=== PATIENT | female | born 1980 | race Two or more races ===

== ENCOUNTER → 2018-09-18 | Outpatient (CLI) | payer OTHER ==
[2018-09-18 10:23] LABS: BASOPHILS # (AUTO) 0.05 x10^3/uL (0-0.1); BASOPHILS % (AUTO) 1 % (0-1); EOSINOPHILS # (AUTO) 0.14 x10^3/uL (0-0.4); EOSINOPHILS % (AUTO) 2 % (1-7); LYMPHOCYTES # (AUTO) 2.27 x10^3/uL (1-3.4); LYMPHOCYTES % (AUTO) 27 % (22-44); MD NO; MEAN CORPUSCULAR HEMOGLOBIN 29.4 pg (27.0-34.8); MEAN CORPUSCULAR VOLUME 86.5 fL (80-100); MEAN PLATELET VOLUME 8.5 fL (7.4-10.4); MONOCYTES # (AUTO) 0.53 x10^3/uL (0.2-0.8); MONOCYTES % (AUTO) 6 % (2-9); NEUTROPHILS # (AUTO) 5.34 x10^3/uL (1.8-6.8); NEUTROPHILS % (AUTO) 64 % (42-75); PLATELET COUNT 283 x10^3/uL (130-400); RED BLOOD COUNT 5.48 x10^6/uL (3.82-5.3); RED CELL DISTRIBUTION WIDTH 12.7 % (9.6-15.2)
[2018-09-18 10:35] LABS: ALANINE AMINOTRANSFERASE 29 U/L (12-78); ALBUMIN 3.8 g/dL (3.4-5.0); ANION GAP 5 mmol/L (5-15); CALCIUM 8.6 mg/dL (8.5-10.1); CHLORIDE 107 mmol/L (98-107); CREATININE 0.94 mg/dL (0.55-1.02)
[2018-09-18 10:44] LABS: ALKALINE PHOSPHATASE 77 U/L (45-117); BILIRUBIN,TOTAL 0.4 mg/dL (0.2-1.0); CHOL/HDL RATIO 5.2; CHOLESTEROL, TOTAL 194 mg/dL (140-239); FREE T4 (FREE THYROXINE) 1.13 ng/dL (0.76-1.46); HDL CHOL % 19 % (28-40); HDL CHOLESTEROL (DIRECT) 37 mg/dL (40-60); LDL CHOLESTEROL,CALCULATED 115 mg/dL (54-169); LDL/HDL RATIO 3.1 (0.5-3.0); TOTAL PROTEIN 8.2 g/dL (6.4-8.2); TRIGLYCERIDES 209 mg/dL (50-200); VLDL CHOLESTEROL 42 mg/dL (0-25)
== END | disposition home or self-care (01) ==
LOC: LAB 10:10
PROVIDERS: ATTEND Nurse Practitioner Family
DX: Z00.8 Encounter for other general examination (principal)
CPT/HCPCS: 36415; 80053; 80061; 82306; 84439; 84443; 84480; 85025

== ENCOUNTER → 2018-09-18 | Outpatient (CLI) | payer OTHER | END | disposition home or self-care (01) | LOC: CARD 08:43 | PROVIDERS: ATTEND Nurse Practitioner Family | DX: G56.03 Carpal tunnel syndrome, bilateral upper limbs (principal) | CPT/HCPCS: 95886; 95908 ==

== ENCOUNTER 2018-11-10 09:17 | Emergency (ER) | payer OTHER ==
[~2018-11-10] VITALS: Ht 165.1 cm; Wt 113.0 kg
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
[2018-11-10 10:57] LABS: BASOPHILS # (AUTO) 0.06 x10^3/uL (0-0.1); BASOPHILS % (AUTO) 1 % (0-1); EOSINOPHILS # (AUTO) 0.04 x10^3/uL (0-0.4); EOSINOPHILS % (AUTO) 1 % (1-7); LYMPHOCYTES # (AUTO) 1.63 x10^3/uL (1-3.4); LYMPHOCYTES % (AUTO) 21 % (22-44); MD NO; MEAN CORPUSCULAR HGB CONC 33.6 g/dL (32.4-35.8); MEAN PLATELET VOLUME 8.5 fL (7.4-10.4); MONOCYTES # (AUTO) 0.61 x10^3/uL (0.2-0.8); MONOCYTES % (AUTO) 8 % (2-9); NEUTROPHILS # (AUTO) 5.64 x10^3/uL (1.8-6.8); NEUTROPHILS % (AUTO) 71 % (42-75); PLATELET COUNT 277 x10^3/uL (130-400); RED BLOOD COUNT 4.86 x10^6/uL (3.82-5.3); RED CELL DISTRIBUTION WIDTH 12.8 % (9.6-15.2)
[2018-11-10 11:10] LABS: ALBUMIN 3.7 g/dL (3.4-5.0); ANION GAP 5 mmol/L (5-15); CHLORIDE 110 mmol/L (98-107)
[2018-11-10 11:30] LABS: CREATININE 0.69 mg/dL (0.55-1.02)
--- NOTE | 2018-11-10 12:21 | NUR ---
AWAITING UA RESULTS
[2018-11-10 12:53] LABS: MICROSCOPIC AUTO
[2018-11-10 12:56] LABS: CULTURE INDICATED? NO
[2018-11-10 14:01] VITALS: BP 131/70
== END 2018-11-10 14:15 | disposition home or self-care (01) ==
LOC: ED 10:00
DX: O20.0 Threatened abortion (principal); Z3A.01 Less than 8 weeks gestation of pregnancy
CPT/HCPCS: 36415; 76801; 80048; 81001; 82040; 84702; 85025; 86901; 99284

== ENCOUNTER 2018-11-12 16:41 | Outpatient (CLI) | payer OTHER | END 2018-11-12 23:59 | disposition home or self-care (01) | LOC: LAB 16:41 | PROVIDERS: ATTEND Nurse Practitioner Family | DX: Z33.1 Pregnant state, incidental (principal) | CPT/HCPCS: 36415; 84702 ==

== ENCOUNTER 2019-02-25 06:49 | Day surgery (SDC) | payer OTHER ==
[2019-02-22 08:50] LABS: ALBUMIN 3.6 g/dL (3.4-5.0); ANION GAP 5 mmol/L (5-15); CALCIUM 8.7 mg/dL (8.5-10.1); CHLORIDE 114 mmol/L (98-107)
[2019-02-22 08:55] LABS: ALANINE AMINOTRANSFERASE 30 U/L (12-78); ALKALINE PHOSPHATASE 74 U/L (45-117); BILIRUBIN,TOTAL 0.5 mg/dL (0.2-1.0); CREATININE 0.85 mg/dL (0.55-1.02); TOTAL PROTEIN 7.3 g/dL (6.4-8.2)
[~2019-02-25] VITALS: Ht 162.6 cm; Wt 116.4 kg
[~2019-02-25 06:49] MED LIST: HYDROCHLOROTH12.5 MG PO
[2019-02-25] MEDS ORDERED: BUPIVACAINE/PF 0.5% ONE (06:56)
[2019-02-25] MEDS ORDERED: EPINEPHRINE 1 MG/ML, 1ML ONE (06:56)
[2019-02-25] MEDS ORDERED: LIDOCAINE 1%, 20ML ONE (06:56)
[2019-02-25] MEDS ORDERED: LACTATED RINGERS 1,000 ML IV SCH (07:17)
[2019-02-25 07:18] VITALS: BP 126/81
[2019-02-25] MEDS ORDERED: FENTANYL PF 100 MCG/2ML ONE (08:26)
[2019-02-25] MEDS ORDERED: MIDAZOLAM 1 MG/ML, 2ML ONE ×2 (08:26→09:01)
[2019-02-25] MEDS ORDERED: FENTANYL PF 100 MCG/2ML IV PRN (09:00)
[2019-02-25] MEDS ORDERED: hydrALAzine 20 MG/ML, 1ML IV PRN (09:00)
[2019-02-25] MEDS ORDERED: ONDANSETRON 2MG/ML, 2ML IV PRN (09:00)
[2019-02-25] MEDS ORDERED: OXYcodone 5 MG/5 ML ORAL.SOL UDC PO PRN (09:00)
[2019-02-25] MEDS ORDERED: ACETAMINOPHEN 325 MG TABLET PO PRN (09:00)
[2019-02-25] MEDS ORDERED: KETOROLAC 30 MG/1 ML IV PRN (09:00)
[2019-02-25] MEDS ORDERED: PROMETHAZINE 25 MG/ML, 1ML IV PRN (09:00)
[2019-02-25] MEDS ORDERED: MEPERIDINE/PF 25MG/0.5ML IVPush PRN (09:00)
[2019-02-25] MEDS ORDERED: MIDAZOLAM 1 MG/ML, 2ML IV PRN (09:00)
[2019-02-25] MEDS ORDERED: KETOROLAC 30 MG/1 ML ONE (09:23)
[2019-02-25] MEDS ORDERED: PROPOFOL 10 MG/ML, 20ML ONE (09:23)
[2019-02-25] MEDS ORDERED: OXYcodone 5 MG/5 ML ORAL.SOL UDC ONE (09:51)
== END 2019-02-25 11:16 | disposition home or self-care (01) ==
LOC: OUT 06:49
PROVIDERS: ATTEND Orthopaedic Surgery Hand Surgery
DX: G56.01 Carpal tunnel syndrome, right upper limb (principal); Z72.89 Other problems related to lifestyle
CPT/HCPCS: 29848; 36415; 80053; 81025; J0171; J1885; J2250; J2704; J3010; J3490; J7120

== ENCOUNTER 2019-06-09 12:48 | Outpatient (CLI) | payer OTHER | END 2019-06-09 23:59 | disposition home or self-care (01) | LOC: CVU 12:48 | PROVIDERS: ATTEND Internal Medicine Cardiovascular Disease | DX: I82.409 Acute embolism and thrombosis of unspecified deep veins of unspecified lower extremity (principal); R60.9 Edema, unspecified; I87.2 Venous insufficiency (chronic) (peripheral); I73.9 Peripheral vascular disease, unspecified | CPT/HCPCS: 93306; 93970 ==

== ENCOUNTER 2019-10-06 17:50 | Emergency (ER) | payer OTHER ==
[~2019-10-06] VITALS: Ht 165.1 cm; Wt 108.8 kg
--- NOTE | 2019-10-06 19:06 | NUR ---
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
--- NOTE | 2019-10-06 19:43 | NUR ---
PT WITH VAGINAL BLEEDING THAT STARTED TODAY. BRIGHT RED BLOOD VAGINALLY. C/O LOWER BACK PAIN
[2019-10-06 19:44] LABS: BASOPHILS % (AUTO) 1 % (0-1); EOSINOPHILS # (AUTO) 0.11 x10^3/uL (0-0.4); EOSINOPHILS % (AUTO) 1 % (1-7); LYMPHOCYTES # (AUTO) 1.99 x10^3/uL (1-3.4); LYMPHOCYTES % (AUTO) 20 % (22-44); MD NO; MEAN CORPUSCULAR HEMOGLOBIN 30.1 pg (27.0-34.8); MEAN CORPUSCULAR HGB CONC 32.9 g/dL (32.4-35.8); MEAN CORPUSCULAR VOLUME 91.7 fL (80-100); MEAN PLATELET VOLUME 8.9 fL (7.4-10.4); MONOCYTES # (AUTO) 0.59 x10^3/uL (0.2-0.8); MONOCYTES % (AUTO) 6 % (2-9); NEUTROPHILS # (AUTO) 7.26 x10^3/uL (1.8-6.8); NEUTROPHILS % (AUTO) 72 % (42-75); PLATELET COUNT 262 x10^3/uL (130-400); RED BLOOD COUNT 4.91 x10^6/uL (3.82-5.3); RED CELL DISTRIBUTION WIDTH 13.3 % (9.6-15.2)
[2019-10-06 19:52] LABS: ALANINE AMINOTRANSFERASE 57 U/L (12-78); ALBUMIN 3.9 g/dL (3.4-5.0); ANION GAP 8 mmol/L (5-15); CALCIUM 9.4 mg/dL (8.5-10.1); CHLORIDE 109 mmol/L (98-107); CREATININE 0.78 mg/dL (0.55-1.02)
[2019-10-06 20:03] LABS: CULTURE INDICATED? YES; MICROSCOPIC INDICATED
[2019-10-06 20:09] LABS: ALKALINE PHOSPHATASE 58 U/L (45-117); BILIRUBIN,TOTAL 0.4 mg/dL (0.2-1.0); TOTAL PROTEIN 8.2 g/dL (6.4-8.2)
[2019-10-06] MEDS ORDERED: ONDANSETRON 2MG/ML, 2ML ONE (20:36)
[2019-10-06 20:46] VITALS: BP 112/49
[2019-10-06] MEDS ORDERED: SODIUM CHLORIDE FLUSH 10ML SYR IVF ONE (21:00)
[2019-10-06] MEDS ORDERED: ONDANSETRON 2MG/ML, 2ML IVPush ONE (21:00)
[2019-10-06] MEDS ORDERED: SODIUM CHLORIDE 0.9% 1,000ML IVBOLUS ONE (21:00)
== END 2019-10-06 22:15 | disposition home or self-care (01) ==
LOC: ED 22:09
DX: O20.0 Threatened abortion (principal); O21.0 Mild hyperemesis gravidarum; N30.90 Cystitis, unspecified without hematuria; E86.0 Dehydration; Z3A.21 21 weeks gestation of pregnancy
CPT/HCPCS: 36415; 76801; 80053; 81001; 84702; 85025; 86901; 87086; 96361; 96374; 99284; J2405; J7030

== ENCOUNTER 2020-05-18 05:34 | Inpatient (IN) | payer OTHER ==
[~2020-05-18] VITALS: Ht 165.1 cm; Wt 120.0 kg
[2020-05-18] MEDS ORDERED: LACTATED RINGERS 1,000 ML IV SCH (05:56)
[2020-05-18] MEDS ORDERED: SODIUM CITRATE/CITRIC ACID 30 ML UDC PO ONE (06:00)
[2020-05-18] MEDS ORDERED: METOCLOPRAMIDE 5 MG/ML, 2ML IV ONE (06:00)
[2020-05-18] MEDS ORDERED: LACTATED RINGERS 1,000 ML IVBOLUS ONE (06:00)
[2020-05-18] MEDS ORDERED: OXYTOCIN 30U/ 0.9% NaCL 500ML 500 ML ONE (06:24)
[2020-05-18] MEDS ORDERED: NEWBORN KIT ONE (06:24)
[2020-05-18] MEDS ORDERED: SODIUM CITRATE/CITRIC ACID 30 ML UDC ONE (06:24)
[2020-05-18] MEDS ORDERED: METOCLOPRAMIDE 5 MG/ML, 2ML ONE (06:24)
[2020-05-18 06:59] LABS: BASOPHILS # (AUTO) 0.04 x10^3/uL (0-0.1); BASOPHILS % (AUTO) 0 % (0-1); EOSINOPHILS # (AUTO) 0.13 x10^3/uL (0-0.4); EOSINOPHILS % (AUTO) 1 % (1-7); LYMPHOCYTES # (AUTO) 1.59 x10^3/uL (1-3.4); LYMPHOCYTES % (AUTO) 16 % (22-44); MD NO; MEAN CORPUSCULAR HEMOGLOBIN 29.5 pg (27.0-34.8); MEAN CORPUSCULAR HGB CONC 33.6 g/dL (32.4-35.8); MEAN CORPUSCULAR VOLUME 87.9 fL (80-100); MONOCYTES # (AUTO) 0.75 x10^3/uL (0.2-0.8); MONOCYTES % (AUTO) 7 % (2-9); NEUTROPHILS # (AUTO) 7.58 x10^3/uL (1.8-6.8); NEUTROPHILS % (AUTO) 75 % (42-75); PLATELET COUNT 164 x10^3/uL (130-400); RED BLOOD COUNT 4.37 x10^6/uL (3.82-5.3); RED CELL DISTRIBUTION WIDTH 13.1 % (9.6-15.2)
[2020-05-18] MEDS ORDERED: FENTANYL PF 100 MCG/2ML ONE (07:13)
[2020-05-18] MEDS ORDERED: LIDOCAINE 1%, 20ML ONE (07:34)
[2020-05-18] MEDS ORDERED: CEFAZOLIN 1,000 MG ONE ×3 (08:09)
[2020-05-18] MEDS ORDERED: KETOROLAC 30 MG/1 ML ONE (08:09)
[2020-05-18] MEDS ORDERED: OXYTOCIN 10 UNITS/ML, 1ML ONE ×4 (08:09)
[2020-05-18] MEDS ORDERED: EPHEDRINE 50 MG/ML, 1ML ONE (08:09)
[2020-05-18] MEDS: LACTATED RINGERS 1,000 ML IV SCH ×5 (08:53→23:48)
[2020-05-18] MEDS ORDERED: MISOPROSTOL 200 MCG TABLET ONE (08:59)
[2020-05-18] MEDS ORDERED: morphine SULFATE 10 MG/ML, 1ML IVPush PRN ×2 (09:00→09:30)
[2020-05-18] MEDS ORDERED: IBUPROFEN 600 MG TABLET PO PRN (09:00)
[2020-05-18] MEDS ORDERED: METHYLERGONOVINE 0.2 MG/ML IM PRN (09:00)
[2020-05-18] MEDS: KETOROLAC 30 MG/1 ML IV SCH ×3 (09:00→21:24)
[2020-05-18] MEDS ORDERED: DIPH,PERTUSS(ACELL),TET VAC/PF NC IM-VACC PRN (09:00)
[2020-05-18] MEDS ORDERED: CARBOPROST TROMETHAMINE 250 MCG/ML, 1ML IM PRN (09:00)
[2020-05-18] MEDS ORDERED: MISOPROSTOL 200 MCG TABLET PR PRN (09:00)
[2020-05-18] MEDS: PRENATAL VIT/IRON/FA 1 EACH TABLET PO SCH (09:00)
[2020-05-18] MEDS ORDERED: ONDANSETRON 2MG/ML, 2ML IV PRN (09:00)
[2020-05-18] MEDS ORDERED: MEPERIDINE/PF 100 MG/ML ONE (09:13)
[2020-05-18] MEDS: MEPERIDINE/PF 25MG/0.5ML IVPush PRN ×4 (09:16→11:50)
[2020-05-18] MEDS ORDERED: OXYcodone 5 MG/5 ML ORAL.SOL UDC PO PRN (09:30)
[2020-05-18] MEDS ORDERED: MISOPROSTOL 200 MCG TABLET PR ONE (09:30)
[2020-05-18] MEDS ORDERED: DIPHENHYDRAMINE 50 MG/ML, 1ML IVPush PRN (09:30)
[2020-05-18] MEDS ORDERED: EPHEDRINE 50 MG/ML, 1ML IM PRN (09:30)
[2020-05-18] MEDS ORDERED: LABETALOL 5MG/ML, 20ML IV PRN (09:30)
[2020-05-18] MEDS ORDERED: ONDANSETRON 2MG/ML, 2ML IVPush PRN (09:30)
[2020-05-18] MEDS ORDERED: EPHEDRINE 50 MG/ML, 1ML IVPush PRN (09:30)
[2020-05-18] MEDS ORDERED: FENTANYL PF 100 MCG/2ML IV PRN (09:30)
[2020-05-18] MEDS ORDERED: METHYLERGONOVINE 0.2 MG/ML IM ONE (10:21)
[2020-05-18] MEDS ORDERED: METHYLERGONOVINE 0.2 MG/ML IM STA (10:23)
[2020-05-18] MEDS: OXYTOCIN 30U/ 0.9% NaCL 500ML 500 ML IV SCH ×2 (10:31→18:53)
[2020-05-18] MEDS ORDERED: CARBOPROST TROMETHAMINE 250 MCG/ML, 1ML IM ONE ×2 (10:39→11:00)
[2020-05-18] MEDS ORDERED: TRANEXAMIC ACID 100 MG/ML, 10ML ONE (10:46)
[2020-05-18 11:23] LABS: MEAN CORPUSCULAR HGB CONC 32.7 g/dL (32.4-35.8); MEAN CORPUSCULAR VOLUME 88.8 fL (80-100); MEAN PLATELET VOLUME 9.8 fL (7.4-10.4); PLATELET COUNT 193 x10^3/uL (130-400); RED BLOOD COUNT 4.49 x10^6/uL (3.82-5.3); RED CELL DISTRIBUTION WIDTH 13.2 % (9.6-15.2)
[2020-05-18 11:43] LABS: BASOPHILS # (AUTO) 0.02 x10^3/uL (0-0.1); BASOPHILS % (AUTO) 0 % (0-1); EOSINOPHILS # (AUTO) 0.01 x10^3/uL (0-0.4); EOSINOPHILS % (AUTO) 0 % (1-7); LYMPHOCYTES # (AUTO) 1.32 x10^3/uL (1-3.4); LYMPHOCYTES % (AUTO) 7 % (22-44); MD SCAN; MONOCYTES # (AUTO) 0.76 x10^3/uL (0.2-0.8); MONOCYTES % (AUTO) 4 % (2-9); NEUTROPHILS # (AUTO) 17.95 x10^3/uL (1.8-6.8); NEUTROPHILS % (AUTO) 90 % (42-75)
[2020-05-18 12:15] VITALS: BP 136/81
[2020-05-18] MEDS: ACETAMINOPHEN 325 MG TABLET PO PRN ×3 (12:47→21:25)
[2020-05-18] MEDS: SIMETHICONE 80 MG CHEW TAB PO PRN (12:47)
[2020-05-18] MEDS: OXYcodone IR 5MG TABLET PO PRN ×3 (12:48→21:25)
[2020-05-18 16:08] LABS: BASOPHILS % (AUTO) 0 % (0-1); EOSINOPHILS # (AUTO) 0.02 x10^3/uL (0-0.4); EOSINOPHILS % (AUTO) 0 % (1-7); LYMPHOCYTES # (AUTO) 1.46 x10^3/uL (1-3.4); LYMPHOCYTES % (AUTO) 10 % (22-44); MD NO; MEAN CORPUSCULAR HEMOGLOBIN 29.5 pg (27.0-34.8); MEAN CORPUSCULAR VOLUME 86.9 fL (80-100); MEAN PLATELET VOLUME 9.8 fL (7.4-10.4); MONOCYTES # (AUTO) 0.78 x10^3/uL (0.2-0.8); MONOCYTES % (AUTO) 5 % (2-9); NEUTROPHILS # (AUTO) 13.16 x10^3/uL (1.8-6.8); NEUTROPHILS % (AUTO) 85 % (42-75); PLATELET COUNT 163 x10^3/uL (130-400); RED BLOOD COUNT 3.84 x10^6/uL (3.82-5.3)
[2020-05-18 16:30] VITALS: BP 116/76
[2020-05-18 19:15] VITALS: BP 130/73
[2020-05-18 23:35] VITALS: BP 124/70
[2020-05-19] MEDS: OXYcodone IR 5MG TABLET PO PRN ×3 (03:19→12:35)
[2020-05-19] MEDS: ACETAMINOPHEN 325 MG TABLET PO PRN ×3 (03:19→12:35)
[2020-05-19] MEDS: KETOROLAC 30 MG/1 ML IV SCH ×4 (03:19→20:55)
[2020-05-19 03:35] VITALS: BP 118/68
[2020-05-19] MEDS: LACTATED RINGERS 1,000 ML IV SCH ×4 (04:53→16:53)
[2020-05-19] MEDS: OXYTOCIN 30U/ 0.9% NaCL 500ML 500 ML IV SCH ×2 (04:53→14:53)
[2020-05-19] MEDS ORDERED: SODIUM CHLORIDE 0.9%, 500ML IVBOLUS ONE (06:00)
[2020-05-19 07:15] VITALS: BP 120/81
[2020-05-19] MEDS: PRENATAL VIT/IRON/FA 1 EACH TABLET PO SCH (07:39)
[2020-05-19] MEDS: DOCUSATE 100 MG CAPSULE PO PRN ×2 (07:39→20:55)
[2020-05-19] MEDS: SIMETHICONE 80 MG CHEW TAB PO PRN ×2 (12:42→20:55)
[2020-05-19] MEDS ORDERED: MEASLES,MUMPS&RUBELLA VACC/PF 0.5 ML SQ-VACC ONE ×2 (14:13→15:00)
[2020-05-19 14:32] LABS: BASOPHILS # (AUTO) 0.02 x10^3/uL (0-0.1); BASOPHILS % (AUTO) 0 % (0-1); EOSINOPHILS # (AUTO) 0.08 x10^3/uL (0-0.4); EOSINOPHILS % (AUTO) 1 % (1-7); LYMPHOCYTES # (AUTO) 1.98 x10^3/uL (1-3.4); LYMPHOCYTES % (AUTO) 19 % (22-44); MD NO; MEAN CORPUSCULAR HEMOGLOBIN 29.5 pg (27.0-34.8); MEAN CORPUSCULAR HGB CONC 33.3 g/dL (32.4-35.8); MEAN CORPUSCULAR VOLUME 88.6 fL (80-100); MEAN PLATELET VOLUME 9.6 fL (7.4-10.4); MONOCYTES # (AUTO) 0.64 x10^3/uL (0.2-0.8); MONOCYTES % (AUTO) 6 % (2-9); NEUTROPHILS # (AUTO) 7.68 x10^3/uL (1.8-6.8); NEUTROPHILS % (AUTO) 74 % (42-75); PLATELET COUNT 170 x10^3/uL (130-400); RED BLOOD COUNT 3.45 x10^6/uL (3.82-5.3); RED CELL DISTRIBUTION WIDTH 13.6 % (9.6-15.2)
[2020-05-19] MEDS: OXYcodone/APAP 5/325MG TABLET PO PRN (18:03)
[2020-05-19 20:00] VITALS: BP 121/79
[2020-05-20] MEDS: OXYTOCIN 30U/ 0.9% NaCL 500ML 500 ML IV SCH ×2 (00:53→10:53)
[2020-05-20] MEDS: LACTATED RINGERS 1,000 ML IV SCH ×4 (00:53→10:53)
[2020-05-20] MEDS: OXYcodone IR 5MG TABLET PO PRN ×2 (01:15→07:32)
[2020-05-20] MEDS: KETOROLAC 30 MG/1 ML IV SCH (03:13)
[2020-05-20] MEDS: PRENATAL VIT/IRON/FA 1 EACH TABLET PO SCH (07:32)
[2020-05-20] MEDS: SIMETHICONE 80 MG CHEW TAB PO PRN (07:32)
[2020-05-20] MEDS: DOCUSATE 100 MG CAPSULE PO PRN (07:32)
[2020-05-20 08:00] VITALS: BP 134/77
[2020-05-20] MEDS: OXYcodone/APAP 5/325MG TABLET PO PRN (11:07)
[2020-05-20] MEDS ORDERED: IBUP200T49 PO (11:21)
[2020-05-20] MEDS ORDERED: OXYC-302 PO (11:22)
[2020-05-20] MEDS ORDERED: DOCU-131 PO (11:22)
[2020-05-20] MEDS ORDERED: FERR-46 PO (11:23)
== END 2020-05-20 13:40 | disposition home or self-care (01) | DRG 785 ==
LOC: LDIP 05:34 → 2NW 12:20
PROVIDERS: ADMIT Obstetrics & Gynecology Maternal & Fetal Medicine; ATTEND Obstetrics & Gynecology Maternal & Fetal Medicine
PROC: 10D00Z1 Extraction of Products of Conception, Low, Open Approach (ICD-10-PCS; principal; 2020-05-18)
PROC: 0UB70ZZ Excision of Bilateral Fallopian Tubes, Open Approach (ICD-10-PCS; 2020-05-18)
DX: O34.211 Maternal care for low transverse scar from previous cesarean delivery (principal); O24.424 Gestational diabetes mellitus in childbirth, insulin controlled; Z30.2 Encounter for sterilization; Z37.0 Single live birth; Z3A.38 38 weeks gestation of pregnancy
CPT/HCPCS: 36415; J3490; 82962; 85025; 86592; 86850; 86900; 86923; 88305; G0378; J0690; J1885; J2175; J3010; J2210; J2270; J2590; J2765; J7040; J7120

== ENCOUNTER → 2020-06-26 | Outpatient (CLI) | payer OTHER ==
[~2020-06-26] MED LIST changes: +DOCU-131 PO; +FERR-46 PO; +IBUP200T49 PO; +OXYC-302 PO
== END | disposition home or self-care (01) ==
LOC: CVU 15:01
PROVIDERS: ATTEND Obstetrics & Gynecology Maternal & Fetal Medicine
DX: I42.9 Cardiomyopathy, unspecified (principal)
CPT/HCPCS: 93306

== ENCOUNTER → 2020-07-03 | Outpatient (CLI) | payer OTHER | END | disposition home or self-care (01) | LOC: LAB 16:29 | PROVIDERS: ATTEND Obstetrics & Gynecology Maternal & Fetal Medicine | DX: R73.02 Impaired glucose tolerance (oral) (principal) | CPT/HCPCS: 36415; 83036 ==